=== PATIENT | female | born 1980 | race Caucasian/White ===

== ENCOUNTER 2017-04-24 07:18 | Inpatient (IN) ==
[2017-04-24 02:55] LABS: Basophils % 0.4 %; Eosinophils # 0.1 K/mcL (0.0-0.6); Eosinophils % 0.7 %; Hematocrit 37.9 % (35.3-44.9); Hemoglobin 12.1 g/dL (11.5-15.4); Immature Granulocytes % 0.2 % (0-4); Lymphocytes # 4.6 K/mcL (0.6-4.6); Lymphocytes % 43.4 %; Mean Corpuscular HGB Conc 31.9 g/dL (31.6-35.5); Mean Corpuscular Hemoglobin 25.9 pg (28.0-33.3); Mean Platelet Volume 11.8 fL (9.4-12.4); Monocytes % 9.5 %; Neutrophils # 4.9 K/mcL (1.6-8.9); Platelet Count 244 K/mcL (140-400); Red Blood Count 4.68 M/mcL (3.82-4.97); Red Cell Distribution Width 14.5 % (11.5-14.5); Segmented Neutrophils % 45.8 %
--- NOTE | 2017-04-24 03:35 | OB/GYN History & Physical ---
Date of Encounter: 04/24/17 Time of Encounter: 03:34 Assessment and Plan (1) 38 weeks gestation of Current visit: Yes Status: Acute (2) Uterine contractions Current visit: Yes Status: Acute admit to labor and delivery nubain and epidural as desired GBS negative Intermittent monitoring. Anticipate (3) Advanced maternal age (AMA) in Current visit: Yes Status: Acute History of Present Illness Chief complaint: Contractions HPI: Ms. Mcmahon is a 37 year old female 38+4 weeks gestation presents to labor and delivery with active labor. Uncomplicated course. Labs: AB+, rubella and varicella immune, GBS negative, all other serologies negative Past Med Surg Social Fam HX - Past Medical History Source: patient Medical history: no medical history Psychiatric history: no psych history - Past Surgical History Surgical History: no surgical history - Social History Smoking Status: Never smoker Smokeless Tobacco Status: No Alcohol use: none Drug use: none - Family History Mother History Unknown: Yes Family Member Ethnicity: Non- Living Status: Still Living Hx Family Cardiac Disorders: No Hx Family Respiratory Disorders: No Hx Family Cancer: No Hx Family GI Disorders: No Hx Family Endocrine Disorder: No Hx Family Neuromuscular Disorders: No Hx Family Neurologic Disorders: No Hx Family HEENT Disorders: No Hx Family Autoimmune Disorders: No Obstetrical History - Pregnancies : 2 Para: 1 Term: 1 : 0 Ab's: 0 Livin Medications and Allergies Pnv95/Iron Fum/Folic Acid [ Caplet] 1 tab PO DAILY 07/08/15 [History] 3 Allergy/AdvReac Type Severity Reaction Status Date / Time No Known Allergies Allergy Verified 04/24/17 02:26 Exam - Constitutional Constitutional: well developed, well nourished, no acute distress, average body habitus - Neck Neck exam: full ROM - Lungs Respiratory exam: CTAB - Cardiovascular Cardiovascular exam: RRR - Abdomen Abdomen: Present: gravid, non tender - Extremities Extremities exam: normal capillary refill, normal inspection Deep Tendon Reflex Grade: 2+ Normal - Vagina Vagina: Present: normal moisture - Cervix Dilation: 5 (Per altitude chamber technician ) Effacement: 90 Station: 0 Results Result Diagrams: 04/24/17 02:40 Abnormal lab results MCV 81.0 fL (83.0-100.0) L 04/24/17 02:40 MCH 25.9 pg (28.0-33.3) L 04/24/17 02:40 All other labs normal. - VTE Reasons for not Prescribing Prophylaxis: Treatment not Indicated - Low risk for VTE
[2017-04-24 03:58] LABS: Amphetamine Screen,Urine Negative ng/mL (Cutoff=1000); Barbiturate Screen,Urine Negative ng/mL (Cutoff=200); Benzodiazepines Screen,Urine Negative ng/mL (Cutoff=200); Cannabinoid Screen,Urine Negative ng/mL (Cutoff = 50); Cocaine Screen,Urine Negative ng/mL (Cutoff= 300); Opiate Screen,Urine Negative ng/mL (Cutoff=300); Phencyclidine Screen,Urine Negative ng/mL (Cutoff=25)
[~2017-04-24 07:18] MED LIST: *HR* Oxytocin 10 UNIT/ML VIAL IM ONE; Famotidine 20 MG/2 ML VIAL IVP PRN; Lidocaine -MPF 1% 2 ML VIAL ONE; Lidocaine 1% 20 ML MDV INFILT PRN; Naloxone 0.4 MG/ML INJ IVP PRN; Ringers Solution, Lactated 1,000 ML ONE
--- NOTE | 2017-04-24 07:26 | OB/GYN Procedure Note ---
Delivery - Delivery Provider: Deepthi Abel Intrapartum events: none Delivery induction: none Delivery monitor: external FHT, external uterine Anesthesia: local Estimated Blood Loss: 100 - (s) A Infant Delivery Date: 04/24/17 Delivery Time: 06:39 Presentation: vertex Position: [place] Gender: Male Viability: Viable at 1 minute: 8 at 5 mins: 9 Shoulder Dystocia: not encountered Placenta: spontaneous Cord: 3 umbilical vessels, other (short cord) - Repair Episiotomy: none Laceration Description: Perineal - 2nd Degree, Labial - Complications Delivery complications: none Delivery comments: Admitted in active labor. Progressed to complete, internal bearing down efforts to spontaneous vaginal delivery of liveborn male. Vertex delivered [place] , shoulders and body easily followed. No nuchal cord or shoulder dystocia encountered. Vigorous placed on maternal pelvis due to extremely short umbilical cord. After cord stopped pulsating cord clamped and cut. Vigorous infant placed on maternal chest. Apgars 8/9. Sent to delivered spontaneously, complete (Edward). Fundus massaged until firm. IV not patent therefore 10 milliunits Pitocin given IM. Second-degree perineal laceration repaired with 3- 0 Vicryl under local. EBL 100 - Disposition Mom disposition: stable in LDR disposition: stable in LDR
[2017-04-24] MEDS ORDERED: Benzocaine/Menthol 56 GM AEROSOL SPRAY TP PRN (10:19)
[2017-04-24] MEDS ORDERED: Ibuprofen 600 MG TABLET PO PRN (10:19)
[2017-04-24] MEDS ORDERED: Oxytocin 20 units/ LR 1000 mL 20 UNIT/1,000 ML BAG IVC SCH (10:19)
[2017-04-24] MEDS ORDERED: Acetaminophen 325 MG TABLET PO PRN (10:19)
[2017-04-24] MEDS ORDERED: Lanolin 7 G OINT...G. TP PRN (10:19)
[2017-04-24] MEDS: Prenatal Vit/FA 1 EACH TABLET PO SCH (11:15)
[2017-04-25 04:40] LABS: Basophils % 0.3 %; Eosinophils # 0.1 K/mcL (0.0-0.6); Eosinophils % 0.9 %; Hematocrit 35.1 % (35.3-44.9); Hemoglobin 11.3 g/dL (11.5-15.4); Immature Granulocytes % 0.3 % (0-4); Lymphocytes # 3.4 K/mcL (0.6-4.6); Lymphocytes % 32.8 %; Mean Corpuscular HGB Conc 32.2 g/dL (31.6-35.5); Mean Corpuscular Hemoglobin 26.4 pg (28.0-33.3); Mean Platelet Volume 11.8 fL (9.4-12.4); Monocytes # 0.9 K/mcL (0.0-1.3); Monocytes % 8.2 %; Platelet Count 215 K/mcL (140-400); Red Blood Count 4.28 M/mcL (3.82-4.97); Red Cell Distribution Width 14.8 % (11.5-14.5); Segmented Neutrophils % 57.5 %
[2017-04-25] MEDS: Prenatal Vit/FA 1 EACH TABLET PO SCH (07:48)
[2017-04-25 08:10] VITALS: BP 100/67
--- NOTE | 2017-04-25 09:03 | Discharge Summary ---
Date of Encounter: 04/25/17 Time of Encounter: 09:00 - Discharge Diagnosis (1) Advanced maternal age (AMA) in Priority: Secondary Status: Acute (2) Vaginal delivery Priority: Primary Status: Resolved Comments: Pain well managed on po pain medication, tolerates regular diet, desires discharge. - Discharge Medications Prescriptions: Ibuprofen [Motrin] 600 mg PO Q6HR PRN #60 tablet PRN Reason: Cramping Docusate [Colace] 100 mg PO BID #60 capsule Home Medications: Pnv95/Iron Fum/Folic Acid [ Caplet] 1 tab PO DAILY 07/08/15 [History] Acetaminophen [Tylenol] 650 mg PO Q6HR PRN tablet 04/25/17 [Rx] Benzocaine/Menthol Bas[place] [Dermoplast Bas[place]] 1 appl TP QID PRN aerosol 04/25/17 [Rx] Docusate [Colace] 100 mg PO BID #60 capsule 04/25/17 [Rx] Ibuprofen [Motrin] 600 mg PO Q6HR PRN #60 tablet 04/25/17 [Rx] Lanolin [Lansinoh] 1 appl TP Q4HR PRN oint...g. 04/25/17 [Rx] Allergies/Adverse Reactions: 3 Allergy/AdvReac Type Severity Reaction Status Date / Time No Known Allergies Allergy Verified 04/24/17 02:26 Data Procedures and tests throughout hospitalization: Laboratory Tests 04/24/17 04/24/17 04/25/17 02:38 02:40 04:09 WBC 10.6 10.4 RBC 4.68 4.28 Hgb 12.1 11.3 L Hct 37.9 35.1 L MCV 81.0 L 82.0 L MCH 25.9 L 26.4 L MCHC 31.9 32.2 RDW 14.5 14.8 H Plt Count 244 215 MPV 11.8 11.8 Immature Gran % 0.2 0.3 Seg Neutrophils % 45.8 57.5 Lymphocytes % 43.4 32.8 Monocytes % 9.5 8.2 Eosinophils % 0.7 0.9 Basophils % 0.4 0.3 Neutrophils # 4.9 6.0 Lymphocytes # 4.6 3.4 Monocytes # 1.0 0.9 Eosinophils # 0.1 0.1 Basophils # 0.0 0.0 Urine Opiates Screen Negative Ur Barbiturates Screen Negative Ur Phencyclidine Scrn Negative Ur Amphetamines Screen Negative U Benzodiazepines Scrn Negative Urine Cocaine Screen Negative U Marijuana (THC) Screen Negative Labs on day of discharge: Labs from last 24 hours 04/25/17 04:09 WBC 10.4 RBC 4.28 Hgb 11.3 L Hct 35.1 L MCV 82.0 L MCH 26.4 L MCHC 32.2 RDW 14.8 H Plt Count 215 MPV 11.8 Immature Gran % 0.3 Seg Neutrophils % 57.5 Lymphocytes % 32.8 Monocytes % 8.2 Eosinophils % 0.9 Basophils % 0.3 Neutrophils # 6.0 Lymphocytes # 3.4 Monocytes # 0.9 Eosinophils # 0.1 Basophils # 0.0 Date of admission: 04/24/17 07:18 Primary care physician: PCP JONAS Consults: 04/24/17 10:19 Consult to Transport Tech [CONS] Routine Comment: Vaginal delivery, consult needed Discharging clinician: Deepthi Abel Anticipated date of discharge: 04/25/17 - Patient Status Disposition: Home, Self-Care Condition: Good Functional capacity at discharge: independent ambulation Overall status at discharge: patient is back to baseline - Discharge Instructions Follow Up With: NONE,PCP [Primary Care Provider] - - Diet and Activity Activity: resume usual activities as tolerated Diet: regular diet Hospital Course Reason for admission: active labor, IUP at term Delivery: Episiotomy: none Laceration: 2nd degree, other Other procedures: none complications: none Discharge diagnosis: IUP at term delivered baby: male Hospital course: Delivery - Delivery Provider: Deepthi Abel Intrapartum events: none Delivery induction: none Delivery monitor: external FHT, external uterine Anesthesia: local Estimated Blood Loss: 100 - (s) Infant A Delivery Date: 04/24/17 Infant Delivery Time: 06:39 Presentation: vertex Position: [place] Gender: Male Viability: Viable at 1 minute: 8 at 5 mins: 9 Shoulder Dystocia: not encountered Placenta: spontaneous Cord: 3 umbilical vessels, other (short cord) - Repair Episiotomy: none Laceration Description: Perineal - 2nd Degree, Labial - Complications Delivery complications: none Delivery comments: Admitted in active labor. Progressed to complete, internal bearing down efforts to spontaneous vaginal delivery of liveborn male. Vertex delivered [place] , shoulders and body easily followed. No nuchal cord or shoulder dystocia encountered. Vigorous placed on maternal pelvis due to extremely short umbilical cord. After cord stopped pulsating cord clamped and cut. Vigorous placed on maternal chest. Apgars 8/9. Sent to delivered spontaneously, complete (Edward). Fundus massaged until firm. IV not patent therefore 10 milliunits Pitocin given IM. Second-degree perineal laceration repaired with 3- 0 Vicryl under local. EBL 100 - Disposition Mom disposition: stable in PP and appropriate for discharge Time Attestation: Total time spent providing and/or coordinating discharge services: Time Spent: Less than 30 minutes Exam - Constitutional Vitals: Temp Pulse Resp BP Pulse Ox 97.9 F 68 16 100/67 97 04/25/17 07:47 04/25/17 07:47 04/25/17 07:47 04/25/17 07:47 04/25/17 07:47 General appearance IM: A&O X 3 - Respiratory Respiratory exam: Present: CTAB - Cardiovascular Cardiovascular exam IM: Present: RRR - GI/Abdominal GI/Abdominal exam IM: soft - Uterine Tone: Firm Uterus Position: At Umbilicus - Extremities Exam Extremities exam IM: Present: normal capillary refill, normal inspection - Neurological Exam Neurological exam: normal gait, oriented X3 - Psychiatric Additional comments: reports good mood
== END 2017-04-25 11:25 | disposition home or self-care (01) | DRG 775 ==
LOC: 1NENULAB → 1NENUOBS 10:10
PROVIDERS: ADMIT Student in an Organized Health Care Education/Training Program; ATTEND Student in an Organized Health Care Education/Training Program

== ENCOUNTER 2019-04-28 02:07 | Inpatient (IN) ==
[2019-04-28] MEDS ORDERED: Ringers Solution, Lactated 1,000 ML ONE (04:08)
[2019-04-28] MEDS ORDERED: Naloxone 0.4 MG/ML INJ IVP PRN (04:10)
[2019-04-28] MEDS ORDERED: Metoclopramide 10 MG/2 ML VIAL IVP PRN (04:10)
[2019-04-28] MEDS ORDERED: Famotidine 20 MG/2 ML VIAL IVP PRN (04:10)
[2019-04-28] MEDS ORDERED: Lidocaine 1% 20 ML MDV INFILT PRN (04:15)
[2019-04-28] MEDS ORDERED: Ringers Solution, Lactated 1,000 ML IVC SCH (04:15)
[2019-04-28] MEDS ORDERED: Ondansetron 4 MG/2 ML VIAL IVP PRN (04:15)
[2019-04-28] MEDS ORDERED: *HR* FentaNYL (PF) 100 MCG/2 ML VIAL IVP PRN (04:15)
[2019-04-28] MEDS ORDERED: Oxytocin 20 units/ LR 1000 mL 20 UNIT/1,000 ML BAG IVC ONE (04:30)
[2019-04-28 04:32] LABS: Basophils % 0.3 %; Eosinophils # 0.1 K/mcL (0.0-0.6); Eosinophils % 0.6 %; Hematocrit 40.6 % (35.3-44.9); Hemoglobin 13.3 g/dL (11.5-15.4); Immature Granulocytes % 0.4 % (0-4); Lymphocytes # 3.3 K/mcL (0.6-4.6); Lymphocytes % 23.1 %; Mean Corpuscular HGB Conc 32.8 g/dL (31.6-35.5); Mean Corpuscular Hemoglobin 28.9 pg (28.0-33.3); Mean Corpuscular Volume 88.3 fL (83.0-100.0); Mean Platelet Volume 12.4 fL (9.4-12.4); Monocytes # 1.1 K/mcL (0.0-1.3); Neutrophils # 9.6 K/mcL (1.6-8.9); Platelet Count 216 K/mcL (140-400); Red Cell Distribution Width 14.6 % (11.5-14.5); Segmented Neutrophils % 67.6 %; White Blood Count 14.2 K/mcL (4.3-11.1)
[2019-04-28 04:40] LABS: Amphetamine Screen,Urine Negative ng/mL (Cutoff=1000); Barbiturate Screen,Urine Negative ng/mL (Cutoff=200); Benzodiazepines Screen,Urine Negative ng/mL (Cutoff=200); Cannabinoid Screen,Urine Negative ng/mL (Cutoff = 50); Cocaine Screen,Urine Negative ng/mL (Cutoff= 300); Opiate Screen,Urine Negative ng/mL (Cutoff=300); Phencyclidine Screen,Urine Negative ng/mL (Cutoff=25)
[2019-04-28] MEDS ORDERED: Ibuprofen 600 MG TABLET PO PRN (07:44)
[2019-04-28] MEDS ORDERED: Lanolin 7 G OINT...G. TP PRN (07:44)
[2019-04-28] MEDS ORDERED: Acetaminophen 325 MG TABLET PO PRN (07:44)
[2019-04-28] MEDS ORDERED: Benzocaine/Menthol 56 GM AEROSOL SPRAY TP PRN (07:44)
[2019-04-28] MEDS: Prenatal Vit/FA 1 EACH TABLET PO SCH (19:36)
[2019-04-28] MEDS: Oxytocin 20 units/ LR 1000 mL 20 UNIT/1,000 ML BAG IVC SCH (21:20)
[2019-04-29 08:04] VITALS: BP 117/81
[2019-04-29] MEDS: Prenatal Vit/FA 1 EACH TABLET PO SCH (08:52)
== END 2019-04-29 16:05 | disposition home or self-care (01) | DRG 807 ==
LOC: 1NENULAB → OBSVTOIN 02:07 → 1NENUOBS 07:36
PROVIDERS: ADMIT Advanced Practice Midwife; ATTEND Advanced Practice Midwife